=== PATIENT | female | born 1985 | race Caucasian/White ===

== ENCOUNTER → 2021-06-09 07:45 | Outpatient (CLI) | payer BC, SELFPAY ==
--- NOTE | ~2021-06-09 | MM_ITS ---
Corrected Report Associated US order with this report. -BJO EXAMINATION: MM diagnostic katelynn BI w sabine, US breast RT limited HISTORY: Palpable lump in the upper outer quadrant of the right breast TECHNIQUE: Craniocaudal, mediolateral, and mediolateral oblique 3-D tomosynthesis images of the breasts were performed and synthetic 2-D images were generated. CAD analysis was submitted and interpreted. High resolution limited right breast ultrasound was performed. COMPARISON: 05/22/2015, 05/15/2015 BREAST PARENCHYMAL COMPOSITION: The breasts are heterogeneously dense, which may obscure small masses. FINDINGS: MAMMOGRAPHIC FINDINGS: There is no evidence of suspicious mass, calcification, or architectural distortion in either breast to suggest malignancy. There has been no suspicious interval change. There is no mammographic correlate for the reported palpable abnormality of the right breast. ULTRASOUND: There is no evidence of focal abnormal solid or cystic mass in the vicinity of the reported palpable abnormality of concern in the right breast. Incidental note is made 5 mm cyst at the 10:00 location 5 cm from the nipple. IMPRESSION: 1. No specific mammographic or sonographic correlate is identified for the reported palpable abnormality of concern. Further evaluation at this time should be based on clinical assessment. Continued follow-up physical examination is recommended. 2. Recommend routine screening mammography beginning at age 40. BI-RADS Category 2: Benign finding(s). Reviewed, dictated and finalized at location A. MTDD IMPRESSION: 1. No specific mammographic or sonographic correlate is identified for the repo rted palpable abnormality of concern. Further evaluation at this time should be based on clinical assessment. Continued follow-up physical examination is marcio mmended. 2. Recommend routine screening mammography beginning at age 40. BI-RADS Category 2: Benign finding(s).
== END ==
PROVIDERS: PCP Physician Assistant; Visit Provider Physician Assistant
DX: N63.11 Unspecified lump in the right breast, upper outer quadrant (principal)
CPT/HCPCS: 76642; 77062; 77066; G0279

== ENCOUNTER → 2022-08-16 13:37 | Outpatient (CLI) | payer OTHER, SELFPAY ==
--- NOTE | ~2022-08-16 | US_ITS ---
EXAMINATION: US pelvic complete DATE: 08/16/2022 14:16 INDICATION: History of left ovarian cyst Comparison:Ultrasound dated 12/24/2016 TECHNIQUE: Multiple transabdominal sonographic images of the pelvis performed. FINDINGS: The uterus measures 7.4 x 3.6 x 4.9 cm. The endometrial complex measures 4 mm. The right ovary measures 2.2 x 2.5 x 3.4 cm and the left ovary measures 3.8 x 2.2 x 3.7 cm. There ar e small follicles in each ovary. Normal doppler signal in both ovaries. There is a 1.9 cm left ovaria n cyst. There is an IUD in the endometrium. There is no free fluid in the pelvis. There are no abnormal masses seen on either side. IMPRESSION: 1. Left ovarian cyst measuring 1.9 cm Reviewed, dictated and finalized at location B.
== END ==
PROVIDERS: PCP Physician Assistant; Visit Provider Obstetrics & Gynecology Gynecologic Oncology
DX: N94.9 Unspecified condition associated with female genital organs and menstrual cycle (principal); N83.202 Unspecified ovarian cyst, left side
CPT/HCPCS: 76856

== ENCOUNTER → 2023-01-20 07:50 | Outpatient (CLI) | payer OTHER, SELFPAY ==
--- NOTE | ~2023-01-20 | US_ITS ---
Abdominal Sonogram: Real-time sonographic imaging of the abdomen was performed. Clinical History: Epigastric pain Findings: The liver appears normal with no evidence of mass lesion or bile duct dilatation. Main por norma vein demonstrates normal direction of flow. The spleen is normal in size without evidence of foca l lesion. The gallbladder is well distended, and appears normal with no evidence of gallstone or wal l thickening. The common bile duct measures 4 mm. The visualized pancreas, aorta, and IVC are unrema rkable. The right kidney measures 10.9 cm in length and the left kidney measures 10.9 cm. There is no hydronephrosis or renal calculus. Impression: Unremarkable abdominal ultrasound. Reviewed, dictated and finalized at location . Impression: Unremarkable abdominal ultrasound.
== END ==
PROVIDERS: PCP Nurse Practitioner Family; Visit Provider Nurse Practitioner Family
DX: R10.13 Epigastric pain (principal)
CPT/HCPCS: 76700

== ENCOUNTER → 2023-03-22 12:41 | Outpatient (CLI) | payer OTHER, SELFPAY ==
--- NOTE | ~2023-03-22 | MR_ITS ---
EXAMINATION: MR brain/brain stem wo/w con DATE: 03/22/2023 13:43 INDICATION: Chronic migraine w/o aura TECHNIQUE: Magnetic resonance imaging (MRI) of the brain and brainstem was performed without and with 14 mL MultiHance intravenous contrast. Sequences included sagittal and axial T1-weighted SE, axial d iffusion-weighted FS EPI ASSET, axial T2*-weighted GRE, axial T2-weighted FLAIR Propeller, and axial T2-weighted Propeller. Postcontrast axial and coronal T1-weighted SE was obtained. Apparent diffusion coefficient (ADC) maps were created. COMPARISON: None. FINDINGS: No abnormal restricted diffusion to suggest acute ischemic infarct. No MRI evidence of hemorrhage or extra-axial collection. No suspicious foci of susceptibility to suggest prior intraparenchymal hemorr wily. Normal white matter signal. No evidence of advanced or lobar predominant parenchymal volume los s. The basilar cisterns are patent. Flow voids are preserved. Paranasal sinuses are within normal hester its. Globes and orbital contents are within normal limits. IMPRESSION: Normal MR brain findings. Reviewed, dictated and finalized at location K. IMPRESSION: Normal MR brain findings.
--- NOTE | ~2023-03-22 | MR_ITS ---
EXAMINATION: MRA brain wo con DATE: 03/22/2023 13:43 INDICATION: Chronic migraine without aura. TECHNIQUE: Magnetic resonance angiography (MRA) of the brain was performed without intravenous contrast by the 3 D [id number] technique. COMPARISON: MR brain, same date. FINDINGS: There is normal flow related signal seen within the vertebral, basilar and internal carotid arteries. There is no proximal stenosis. There are no aneurysms identified. Both A1 and P1 segments are pat ent. Flow in the cerebral arteries is symmetric. IMPRESSION: Normal MRA brain findings. Reviewed, dictated and finalized at location K. IMPRESSION: Normal MRA brain findings.
== END ==
PROVIDERS: PCP Nurse Practitioner Family
DX: G43.709 Chronic migraine without aura, not intractable, without status migrainosus (principal); R20.2 Paresthesia of skin
CPT/HCPCS: 70544; 70553; A9577

== ENCOUNTER 2023-10-17 09:14 | Emergency (ER) | payer OTHER, SELFPAY ==
--- NOTE | ~2023-10-17 | CT_ITS ---
EXAMINATION: CT abdomen pelvis w con DATE: 10/17/2023 10:38 INDICATION: Left lower quadrant abdominal pain for 2 days TECHNIQUE: Computed tomography (CT) of the abdomen and pelvis was performed with 100 CC Omnipaque 350 intravenous contrast. Automated exposure control and iterative reconstruction technique were employe d. Exam dose: 385.74 mGy-cm total exam DLP. COMPARISON: 01/20/2023 complete abdominal ultrasound examination 12/19/2016 CT abdomen pelvis FINDINGS: Minimal bilateral lower lobe dependent atelectasis, right greater than left. The lung bases otherwise are clear. Normal heart size. No pericardial or pleural effusion. There are multiple scattered left and right hepatic cysts, some new and some enlarged since 12/19/2016 . The largest is situated in the lateral segment of the left hepatic lobe, measuring up to 1.6 cm. The gallbladder is present and appears unremarkable. No bile duct or pancreatic duct dilatation. No pancreatic mass lesion or calcification. Spleen size is within normal range. Approximately 3.1 cm hypoattenuating lesion of the posterior aspect of the spleen, previously measuri ng approximately 2.2 cm on December 19, 2016. Consider further evaluation with precontrast and postco ntrast MR imaging given the interval increase in size since 12/19/2016. The adrenal glands are unremarkable. Nonobstructing 4.5 mm posterior mid right renal calculus. 2.5 mm nonobstructing mid left renal calcul us. There are some subtle areas of diminished contrast enhancement the upper medial left kidney and poste rior mid left kidney, suggesting acute pyelonephritis. No urinary tract calculus or hydroureteronephrosis is noted on either side. The urinary bladder appears unremarkable. Normal appendix. No bowel obstruction, bowel wall thickening, pneumatosis or intraperitoneal free air . Normal caliber of the abdominal aorta. Atherosclerotic calcified plaque is noted. No intraperitoneal or retroperitoneal or pelvic mass lesion or adenopathy or ascites is noted other than cystic lesions in the left adnexal area and posterior cul-de-sac, the former measuring up to 2.2 cm dimension and 17 Hounsfield units, the latter approximately 4 cm dimension and 34 Hounsfield units. No free pelvic fluid is noted. There is an IUD within the uterus. Small fat-containing umbilical hernia. IMPRESSION: Focal areas of diminished enhancement in the left kidney suggesting acute pyelonephritis Nonobstructing 4.5 mm mid right renal calculus and 2.5 mm mid left renal calculus Multiple hepatic cysts Interval enlargement of hepatic hypoattenuating lesion since 12/19/2016 from 2.2 cm to 3.1 cm; conside r further evaluation with MR imaging as clinically appropriate Normal appendix 2.2 cm left adnexal and 4 cm posterior cul-de-sac cystic lesions, which likely would be better charac terized by pelvic ultrasound examination IUD within the uterus Reviewed, dictated and finalized at Location A. Reviewed, dictated and finalized at location A. TAL GROWING TECHNICIAN IMPRESSION: Focal areas of diminished enhancement in the left kidney suggestin g acute pyelonephritis Nonobstructing 4.5 mm mid right renal calculus and 2.5 mm mid left renal calcul us Multiple hepatic cysts Interval enlargement of hepatic hypoattenuating lesion since 12/19/2016 from 2.2 cm to 3.1 cm; consider further evaluation with MR imaging as clinically approp riate Normal appendix 2.2 cm left adnexal and 4 cm posterior cul-de-sac cystic lesions, which likely would be better characterized by pelvic ultrasound examination IUD within the uterus
[2023-10-17 09:24] VITALS: BP 116/66; PULSE 104; RESP 16; TEMP 36.9; O2SAT 98
--- NOTE | 2023-10-17 09:34 | ED.GENADULT ---
HPI - General Adult General Chief complaint: Unspecified Stated complaint: weak/hip pain/abd pain Time Seen by Provider: 10/17/23 09:33 Source: patient and family Mode of arrival: ambulatory Limitations: no limitations History of Present Illness HPI narrative: 37 years old white female came to the emergency room by private car complaining of pain at the left lower quadrant, left hip,, sharp, spasm radiating to left foot, denies any fever, chills, nausea, vomiting, diarrhea, constipation or urinary symptoms. 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 Patient reports pain gets better laying down, worse with activities. At some ibuprofen yesterday without any improvement. Patient is healthy otherwise, does not take medicine at home, does not smoke or drink or use illicit drugs. 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 Surgical History Surgical History History of bunionectomy History of laparoscopy Family History Family History Mother Patient's mother is in good health Family history of malignant neoplasm of breast in first degree relative Father Patient's father is in good health Social History Social History Years smoked: 5 Smoking status: Former smoker Alcohol intake: current Exam Narrative: General appearance: Well-developed, well-nourished Skin: Normal color Head: Normocephalic, nontraumatic Eyes: Clear conjunctiva ENT: Oropharynx normal, ears normal, nose normal Neck: Supple, nontender Chest and respiratory: Airway patent, no respiratory distress, no accessory muscle use Heart: Regular rate/rhythm Abdomen: Soft, nontender, no organomegaly, quiet bowel sounds Vascular: Normal peripheral pulses, normal capillary refill. Musculoskeletal: Normal range of motion, nontender back Neurologic: Alert and oriented ?3, CALL CENTER ANALYST is normal as tested, no gross motor deficit Course Vital Signs Vital signs: Vital Signs Temperature 36.9 C 10/17/23 09:24 Pulse Rate 104 H 10/17/23 09:24 Respiratory Rate 16 10/17/23 09:24 Blood Pressure 116/66 10/17/23 09:24 Pulse Oximetry 98 10/17/23 09:24 Temperature 36.6 C 10/17/23 11:35 Pulse Rate 64 10/17/23 11:35 Respiratory Rate 16 10/17/23 11:35 Blood Pressure 91/60 L 10/17/23 11:35 Pulse Oximetry 98 10/17/23 11:35 Medical Decision Making MDM Narrative Medical decision making narrative: PATIENT CAME TO THE EMERGENCY ROOM WITH PAIN LEFT LOWER BACK LEFT LOWER ABDOMEN, VITAL SIGNS UNREMARKABLE PHYSICAL EXAMINATION ABOVE DIFFERENTIAL DIAGNOSIS BELOW WORKUP TODAY SHOWED URINARY TRACT INFECTION CONSISTENT WITH PYELONEPHRITIS, OVARIAN CYST, INCREASE SIZE OF THE HEPATIC LESION COMPARED TO SOLIDS AND 17. PATIENT WAS NOTIFIED ABOUT THE RESULT AND A REPORT OF THE CT SCAN WAS GIVEN TO THE PATIENT PRIOR TO DISCHARGE. IN THE ED PATIENT RECEIVED 1 L OF NORMAL SALINE, 30 MG OF TO
[2023-10-17 10:00] VITALS: BP 100/67; PULSE 65; RESP 16; O2SAT 98
--- NOTE | 2023-10-17 10:03 | PC.NURSE ---
Pt c/o left flank pain denies any urinary symptoms or N/V/D
[2023-10-17 10:05] LABS: Basophils Percent Auto 0.4 % (0.2-1.2); Eosinophils Percent Auto 0.1 % (0-4.4); Hematocrit 36.5 % (37.0-47.0); Hemoglobin 12.2 g/dL (12.0-15.0); Immature Granulocyte Absolute 0.02 K/mm3 (0.00-0.031); Immature Granulocyte Percent A 0.3 % (0-0.5); Immature Platelet Fraction Pct 3.5 % (0.9-11.2); Lymphocytes Absolute Auto 0.58 K/mm3 (0.9-3.2); Lymphocytes Percent Auto 8.2 % (18.3-44.2); Mean Corpuscular HGB Conc 33.4 g/dl (32-36); Mean Corpuscular Hemoglobin 30.9 pg (26-34); Mean Corpuscular Volume 92.4 fl (80-100); Mean Platelet Volume 9.7 fl (7.4-10.4); Monocytes Absolute Auto 0.8 K/mm3 (0.1-0.6); Monocytes Percent Auto 11.2 % (2.6-8.5); Neutrophils Absolute Auto 5.6 K/mm3 (1.3-6.7); Neutrophils Percent Auto 79.8 % (45.5-73.1); Platelet Count Result 127 k/mm3 (150-375); Red Blood Count 3.95 M/mm3 (4.2-5.4); Red Cell Distribution Width 11.8 % (11.5-14.5); White Blood Count 7.1 K/mm3 (4.5-10.0)
[2023-10-17 10:12] LABS: Appearance Urine Cloudy (Clear); Bacteria Urine 3+ /hpf; Bilirubin Urine Negative (Negative); Blood Urine 2+ (Negative); Color Urine Yellow (Yellow); Glucose Urine UA Negative (Negative); Ketones Urine 4+ mg/dL (Negative); Leukocyte Esterase Ur 1+ LEU/UL (Negative); Nitrate Urine Negative (Negative); Non Pathogenic Casts 0-2; Protein Urine 1+ mg/dL (Negative); Specific Grav Ur 1.021 (1.001-1.035); Squamous Epithelial Cell Urine Many /hpf (Few); WBC Urine 51-100 /hpf; pH Urine 5.5 (5.0-9.0)
[2023-10-17 10:17] LABS: Alanine Aminotransferase 21 U/L (6-35); Albumin Level 3.9 g/dL (3.5-5.1); Alkaline Phosphatase 47 U/L (38-126); Anion Gap 8 mmol/L (8-16); Aspartate Amino Transferase 25 U/L (14-36); Bilirubin,Total 0.7 mg/dL (0.2-1.3); Blood Urea Nitrogen 6 mg/dL (7-17); Calcium 8.3 mg/dL (8.4-10.2); Carbon Dioxide 22 mmol/L (22-30); Chloride 101 mmol/L (98-107); Estimated CRCL calculation 84 ml/min; Estimated Glomerular Filt Rate > 60; Glucose 96 mg/dL (65-110); Lipase 56 U/L (23-300); Potassium 3.9 mmol/L (3.4-5.0); Sodium 131 mmol/L (137-145)
[2023-10-17 10:18] LABS: Add Urine Microscopic? YES
[2023-10-17] MEDS: SODIUM CHLORIDE 0.9% IV 1,000 ML 999 ML IV CONT (10:48)
[2023-10-17] MEDS: KETOROLAC 30 MG/ML VIAL (*BKC) IV PUSH (10:48)
[2023-10-17] MEDS: diazePAM INJ (*CRX) 10 MG/2 ML SYRINGE 5 MG IV PUSH (10:54)
--- NOTE | 2023-10-17 11:33 | PC.NURSE ---
Pt asleep with reg resp.
[2023-10-17 11:35] VITALS: BP 91/60; PULSE 64; RESP 16; TEMP 36.6; O2SAT 98
[2023-10-17 12:31] VITALS: BP 95/50; PULSE 88; RESP 16; O2SAT 97
[2023-10-17 13:01] VITALS: BP 91/61; PULSE 78; RESP 16; O2SAT 97
== END 2023-10-17 14:12 | disposition home or self-care (01) ==
PROVIDERS: Emergency Provider Emergency Medicine; PCP Nurse Practitioner Family
DX: N12 Tubulo-interstitial nephritis, not specified as acute or chronic (principal); N83.202 Unspecified ovarian cyst, left side; K76.9 Liver disease, unspecified; Z87.891 Personal history of nicotine dependence; F98.8 Other specified behavioral and emotional disorders with onset usually occurring in childhood and adolescence
CPT/HCPCS: 36415; 74177; 80053; 81001; 81025; 83690; 85025; 85055; 87077; 87086; 87186; 96361; 96365; 96375; 99284; J0696; J1885; J3360; J7030; Q9967

== ENCOUNTER 2023-12-29 10:48 | Outpatient (CLI) | payer OTHER, SELFPAY ==
--- NOTE | ~2023-12-29 | US_ITS ---
Pelvic ultrasound. Clinical History: Abnormal uterine bleeding, pelvic pain Technique: Realtime transabdominal scanning of the pelvis was performed. Color flow Doppler and Doppl er spectral analysis were performed. Findings: The uterus is anteverted. The endometrial stripe has a thickness of 6 mm. IUD in satisfact ory position. No focal mass is identified. The right ovary measures 2.8 x 1.2 x 2.5 cm. No significant right ovarian or adnexal mass is seen. The left ovary measures 3.8 x 2.0 x 4.5 cm. No significant left ovarian or adnexal mass is seen. There is no evidence of free fluid in the cul de sac. Impression: IUD in place. No other significant findings. Reviewed, dictated and finalized at location . OLOGIC TECHNOLOGY TEACHER Impression: IUD in place. No other significant findings.
== END 2023-12-29 10:49 ==
PROVIDERS: PCP Nurse Practitioner Family; Visit Provider Advanced Practice Midwife
DX: N93.8 Other specified abnormal uterine and vaginal bleeding (principal); R10.2 Pelvic and perineal pain
CPT/HCPCS: 76856

== ENCOUNTER 2024-01-18 08:51 | Outpatient (CLI) | payer OTHER, SELFPAY ==
--- NOTE | ~2024-01-18 | MMUS_ITS ---
EXAMINATION: MM diagnostic katelynn BI w sabine, US breast BI complete HISTORY: Left breast pain, left axillary lump TECHNIQUE: Bilateral full-field and spot 3-D tomosynthesis images were performed and synthetic 2-D im ages were generated. CAD analysis was submitted and interpreted. High resolution complete bilateral b reast ultrasound including all 4 quadrants and subareolar areas and left axilla was performed. COMPARISON: 06/09/2021 diagnostic bilateral mammogram, Limited right breast ultrasound BREAST PARENCHYMAL COMPOSITION: The breasts are heterogeneously dense, which may obscure small masses . FINDINGS: MAMMOGRAPHIC FINDINGS: No suspicious mass or architectural distortion, malignant calcification, skin thickening or retractio n or significant new or developing density is detected. ULTRASOUND: No suspicious mass or shadowing of either breast is detected. Occasional breast cysts: Right breast: 8:00 4.5 cm from nipple: 3.8 mm cyst 9:00 subareolar: 3.9 x 7 mm cyst 10:00 7 cm from nipple: 2.5 x 7.5 mm cyst Left breast: 1:00 5 cm from nipple: 3.2 x 7.5 mm cyst 5:00 3 cm from nipple: 3 mm cyst and 2.8 x 4 mm septated cyst Left axilla: No suspicious mass or shadowing is detected. IMPRESSION: 1. Benign findings 2. Routine annual mammographic screening is recommended BI-RADS Category 2: Benign finding(s). Reviewed, dictated and finalized at location A. IMPRESSION: 1. Benign findings 2. Routine annual mammographic screening is recommended BI-RADS Category 2: Benign finding(s).
== END 2024-01-18 08:52 ==
PROVIDERS: PCP Nurse Practitioner Family; Visit Provider Advanced Practice Midwife
DX: R22.9 Localized swelling, mass and lump, unspecified (principal); N64.4 Mastodynia
CPT/HCPCS: 76641; 77062; 77066; G0279